=== PATIENT | male | born 2000 | race Caucasian/White ===

== ENCOUNTER 2021-02-01 04:28 | Emergency (ER) | payer SELFPAY ==
[~2021-02-01] VITALS: Ht 185.4 cm; Wt 79.4 kg
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
[2021-02-01] MEDS ORDERED: NALO1DIS2 IJ (04:55)
--- NOTE | 2021-02-01 05:08 | NUR ---
[facility] AT BEDSIDE FOR QUESTIONING.
[2021-02-01 08:10] VITALS: BP 115/61
--- NOTE | 2021-02-01 08:10 | NUR ---
Patient given written and verbal discharge instructions. Patient verbalizes understanding of instructions. Patient is ambulatory with steady gait. Refuses offer of jail placement. Patient given list of available shelters in surrounding area.
== END 2021-02-01 08:10 | disposition home or self-care (01) ==
LOC: ER 04:31
DX: T40.411A Poisoning by fentanyl or fentanyl analogs, accidental (unintentional), initial encounter (principal); Y92.89 Other specified places as the place of occurrence of the external cause